=== PATIENT | female | born 1975 | race African-American/Black ===

== ENCOUNTER 2018-06-22 12:37 | Emergency (ER) | payer OTHER ==
[~2018-06-22] VITALS: Ht 160 cm; Wt 81.2 kg
[2018-06-22] MEDS ORDERED: MEDROLDOSEPACK PO (13:12)
[2018-06-22] MEDS ORDERED: TRIAMCINOLONE A80 G2 TOP (13:12)
[2018-06-22 14:19] VITALS: BP 121/69
== END 2018-06-22 14:05 | disposition home or self-care (01) ==
LOC: ER 12:37
DX: L30.9 Dermatitis, unspecified (principal); J45.909 Unspecified asthma, uncomplicated; Z88.0 Allergy status to penicillin; Z88.2 Allergy status to sulfonamides